=== PATIENT | female | born 1995 | race Caucasian/White ===

== ENCOUNTER 2018-09-01 12:19 | Emergency (ER) | payer SELFPAY ==
[2018-09-01 12:27] VITALS: BP 143/77
--- NOTE | 2018-09-01 12:47 | Emergency Department Report ---
Chief Complaint: Abdominal Pain Stated Complaint: URINE HAS BLOOD/ABD PAIN Time Seen by Provider: 09/01/18 12:44 - HPI History of Present Illness: co r flank pain lmp begining of this month not concerned for sti pmh depression afebrile ambulatory no life threat identified MSE completed - Exam Vital Signs: Vital Signs 09/01/18 12:24 Temperature 97.8 F Pulse Rate 113 H Respiratory 18 Rate Blood Pressure 143/77 O2 Sat by Pulse 97 Oximetry MSE screening note: Focused history and physical exam performed. Due to findings the following was ordered: ED Disposition for MSE Condition: Stable Instructions: Abdominal Pain (ED)
[2018-09-01 13:10] LABS: Bacteria,Urine 3+ /HPF (Negative); Bilirubin,Urine NEG (Negative); Blood,Urine LG (Negative); Color,Urine Amber (Yellow); Mucus,Urine 2+ /HPF; Urobilinogen,Urine < 2.0 mg/dL (<2.0)
[2018-09-01 13:11] LABS: RBC,Urine > 182.0 /HPF (0.0-6.0); WBC,Urine > 182.0 /HPF (0.0-6.0)
[2018-09-01 13:12] LABS: HCG Qualitative,Urine Negative (Negative)
[2018-09-01] MEDS ORDERED: NACL 0.9% 1000 ML 1,000 ML IV ONE (13:13)
[2018-09-01 13:26] LABS: Basophils # (Auto) 0.1 K/mm3 (0.0-0.1); Basophils % (Auto) 0.5 % (0.0-1.8); Eosinophils # (Auto) 0.1 K/mm3 (0.0-0.4); Hematocrit 41.4 % (30.3-42.9); Hemoglobin 13.7 gm/dl (10.1-14.3); Lymphocytes # (Auto) 1.7 K/mm3 (1.2-5.4); Lymphocytes % (Auto) 12.6 % (13.4-35.0); Mean Corpuscular HGB Conc 33 % (30-34); Mean Corpuscular Volume 84 fl (79-97); Monocytes # (Auto) 1.4 K/mm3 (0.0-0.8); Monocytes % (Auto) 10.3 % (0.0-7.3); Platelet Count 355 K/mm3 (140-440); Red Blood Count 4.94 M/mm3 (3.65-5.03); Red Cell Distribution Width 13.8 % (13.2-15.2)
[2018-09-01 13:43] LABS: BUN/Creatinine Ratio 11; Blood Urea Nitrogen 9 mg/dL (7-17); Calcium 9.2 mg/dL (8.4-10.2); Hemolysis Index 14
== END 2018-09-01 13:10 | disposition left against medical advice (07) ==
LOC: ED 12:19
DX: R10.9 Unspecified abdominal pain (principal); R31.9 Hematuria, unspecified; Z53.21 Procedure and treatment not carried out due to patient leaving prior to being seen by health care provider
CPT/HCPCS: 36415; 80048; 81001; 81025; 85025